=== PATIENT | male | born 1950 | race Caucasian/White ===

== ENCOUNTER → 2017-12-09 | Outpatient (CLI) | payer MEDICARE, OTHER, BC | LOC: M SLEEP 18:40 | DX: G47.33 Obstructive sleep apnea (adult) (pediatric) (principal) | CPT/HCPCS: 95811 ==

== ENCOUNTER → 2019-12-07 | Outpatient (CLI) | payer MEDICARE, BC, OTHER ==
[~2019-12-07] MED LIST: ACET500C OR; COUM1TAB17 OR; LYRI75CA OR; RYZOLT OR; SOMA250T OR; TUSSSUS5 OR; VICO5TAB OR; ZITHTAB OR
[2019-12-07 17:58] LABS: BLOOD UREA NITROGEN 12 MG/DL (7-18); CREATININE FOR GFR 0.76 MG/DL (0.70-1.30); GLOMERULAR FILTRATION RATE > 60.0 (>49)
== END ==
LOC: M WUC 12:09
PROVIDERS: ATTEND Nurse Practitioner Adult Health
DX: R91.8 Other nonspecific abnormal finding of lung field (principal)

== ENCOUNTER → 2019-12-07 | Outpatient (CLI) | payer MEDICARE, BC, OTHER ==
--- NOTE | 2019-12-07 17:17 | REP ---
REASON FOR EXAM: Dyspnea. The latest prior for comparison is 10/24/2007. Cardiomediastinal silhouette and lung altman are unchanged. No acute patchy parenchymal opacities or pleural effusions have developed. The heart is not enlarged. The osseous structures stable and intact. IMPRESSION: Stable chest. Electronically Signed by Juanpablo Avila DO 12/07/2019 07:11 P
== END ==
LOC: M RAD 09:50
PROVIDERS: ATTEND Nurse Practitioner Adult Health
DX: R06.02 Shortness of breath (principal); R91.8 Other nonspecific abnormal finding of lung field

== ENCOUNTER → 2020-01-08 | Outpatient (CLI) | payer MEDICARE, BC, OTHER ==
[~2020-01-08] MED LIST changes: +ALBU8.5H INH; +B COCAP4 PO; +CARI250T PO; +D31000TA2 PO; +FLOM0.4C39 PO; +FLUT11IN INH; +ISOVUE-370 76% 100ML VIAL As Ordered ONE; +MULTCAP PO; +PREG75CA2 PO; +ROSU40TA4 PO; +TRAM100T21 PO; +WARF-23 PO
--- NOTE | 2020-01-08 11:42 | REP ---
REASON: History of dyspnea. No prior chest CTs for comparison. The latest prior plain film examination chest 12/07/2019 reviewed. CONTRAST: 100 mL Isovue 370. There is no mediastinal or hilar adenopathy. There are no pleural or pericardial effusions. The imaged upper abdomen shows cholelithiasis. The imaged osseous structures are within normal limits. Evaluation of the lung altman shows no abnormal nodules, masses, or opacities. IMPRESSION: CT findings of the chest are within normal limits. There is cholelithiasis. Electronically Signed by Juanpablo Avila DO 01/08/2020 03:55 P
== END ==
LOC: M RAD 08:59
PROVIDERS: ATTEND Nurse Practitioner Adult Health
DX: R91.8 Other nonspecific abnormal finding of lung field (principal); Z87.891 Personal history of nicotine dependence
CPT/HCPCS: 71260; Q9967

== ENCOUNTER → 2020-01-21 | Outpatient (CLI) | payer MEDICARE, BC, OTHER ==
[~2020-01-21] MED LIST changes: -ALBU8.5H INH; -B COCAP4 PO; -CARI250T PO; -D31000TA2 PO; -FLOM0.4C39 PO; -FLUT11IN INH; -ISOVUE-370 76% 100ML VIAL As Ordered ONE; +METHACHOLINE KIT (J7674) INH ONE; -MULTCAP PO; -PREG75CA2 PO; -ROSU40TA4 PO; -TRAM100T21 PO; -WARF-23 PO
--- NOTE | 2020-01-21 10:25 | PFTRPT ---
Site: [facility], [address] [place], [address] ID: [id number] Name: CAIL ESCOTO Visit Date: 01/21/2020 Second ID: [id number] Referring Doctor: Giles Bhat DO Reviewing Doctor: Bacilio Cannon MD Commercial Artist: Slim VILLARREAL RRT Age: 69 : 1950 Sex: Male Race: Height: 71.00 Inches Weight: 255.00 Lbs BSA: 2.34 Order IDs: [id number] Requested Test(s): <RESP-PFT.METH CHAL> Diagnosis: R06.02 puffs of albuterol for post bronchodilator. Review Status: Not Reviewed Pre-Bronch Post-Bronch Pred Actual %Pred Actual %Chng SPIROMETRY FVC (L) 4.70 3.97 84 3.89 -1 FEV1 (L) 3.49 3.12 89 3.06 -2 FEV1/FVC (%) 74 79 106 79 FEF 25% (L/sec) 8.04 8.52 105 7.71 -9 FEF 50% (L/sec) 4.80 4.14 86 3.89 -6 FEF 75% (L/sec) 1.43 0.90 62 0.84 -6 FEF 25-75% (L/sec) 2.71 2.81 103 2.58 -8 FEF Max (L/sec) 8.86 8.52 96 7.72 -9 FIVC (L) 3.71 3.35 -9 FIF 50% (L/sec) 4.53 2.22 48 2.68 21 FIF Max (L/sec) 3.38 3.27 -3 Expiratory Time (sec) 7.13 6.64 -6 Back Extrap Vol (L) 0.15 0.13 -15 Time To FEFmax (sec) 0.121 0.121
== END ==
LOC: M CARPUL 09:27
PROVIDERS: ATTEND Internal Medicine Pulmonary Disease
DX: R06.02 Shortness of breath (principal)
CPT/HCPCS: 94070; 95070; J7674

== ENCOUNTER → 2020-04-08 | Outpatient (CLI) | payer MEDICARE, BC, OTHER ==
[~2020-04-08] MED LIST changes: +ALBU8.5H INH; +B COCAP4 PO; +CARI250T PO; +D31000TA2 PO; +FLOM0.4C39 PO; +FLUT11IN INH; -METHACHOLINE KIT (J7674) INH ONE; +MULTCAP PO; +PREG75CA2 PO; +ROSU40TA4 PO; +TRAM100T21 PO; +WARF-23 PO
== END ==
LOC: M LABSMTC 12:32
PROVIDERS: ATTEND Anesthesiology
DX: Z01.812 Encounter for preprocedural laboratory examination (principal); Z20.828 Contact with and (suspected) exposure to other viral communicable diseases
CPT/HCPCS: C9803; U0003

== ENCOUNTER 2020-04-13 12:08 | Day surgery (SDC) | payer OTHER ==
[~2020-04-13] VITALS: Ht 180.3 cm; Wt 117.0 kg
[~2020-04-13 12:08] MED LIST changes: +NS 1,000 ML IV ONE
[2020-04-13] MEDS ORDERED: propofoL 200 MG/20 ML VIAL As Ordered ONE ×2 (13:29→13:58)
[2020-04-13] MEDS ORDERED: LIDOCAINE 2% 100MG/5ML SDV (FOR ANES.) As Ordered ONE (13:29)
--- NOTE | 2020-04-13 14:09 | ROOR ---
Patient Name: Femi Silveira Procedure Date: 04/13/2020 1:31 PM Date of : 1950 Age: 69 Room: [facility] Gender: Male Note Status: Finalized Procedure: Total Colonoscopy to Cecum + Cold Snare Polypectomy + Hemoclips Indications: High risk colon cancer surveillance: Personal history of colonic polyps, Last colonoscopy: 2018 Providers: Vance Olmos MD Referring MD: Ruiz Collins MD Requesting Provider: Medicines: Monitored Anesthesia Care Complications: No immediate complications. Procedure: Pre-Anesthesia Assessment: - The heart rate, respiratory rate, oxygen saturations, blood pressure, adequacy of pulmonary ventilation, and response to care were monitored throughout the procedure. The Colonoscope was introduced through the anus and advanced to the cecum, identified by appendiceal orifice and ileocecal valve. The colonoscopy was performed without difficulty. The patient tolerated the procedure well. The quality of the bowel preparation was excellent. Findings: The perianal and digital rectal examinations were normal. Non-bleeding internal hemorrhoids were found during retroflexion. The hemorrhoids were small and Grade I (internal hemorrhoids that do not prolapse). Scattered small-mouthed diverticula were found in the recto-sigmoid colon, sigmoid colon and descending colon. Multiple sessile polyps were found in the entire colon. The polyps were medium in size. These polyps were removed with a cold snare. Resection and retrieval were complete. To prevent bleeding after the polypectomy, six hemostatic clips were successfully placed (MR conditional). There was no bleeding at the end of the procedure. The exam was otherwise without abnormality on direct and retroflexion views. Impression: - Non-bleeding internal hemorrhoids. - Diverticulosis in the recto-sigmoid colon, in the sigmoid colon and in the descending colon. - Multiple medium polyps in the entire colon, removed with a cold snare. Resected and retrieved. Clips (MR conditional) were placed. - The examination was otherwise normal on direct and retroflexion views. - The exam was otherwise normal to the cecum. Recommendation: - Patient has a contact number available for emergencies. The signs and symptoms of potential delayed complications were discussed with the patient. Return to normal activities tomorrow. Written discharge instructions were provided to the patient. - High fiber diet. - Discharge patient to home. - Continue present medications. - Await pathology results. - Telephone GI clinic for pathology results in 1 week. - Repeat colonoscopy for surveillance based on pathology results. - Resume Coumadin (warfarin) at prior dose today. - Await pathology results. - The findings and recommendations were discussed with the patient. Vance Olmos MD Vance Olmos MD 04/13/2020 2:08:32 PM Electronically signed by Vance Olmos MD Number of Addenda: 0 Note Initiated On: 04/13/2020 1:31 PM Estimated Blood Loss: Estimated blood loss: none.
[2020-04-13 14:43] VITALS: BP 142/81
== END 2020-04-13 14:46 | disposition home or self-care (01) ==
LOC: M OPP 12:08
PROVIDERS: ATTEND Internal Medicine Gastroenterology
DX: Z12.11 Encounter for screening for malignant neoplasm of colon (principal); Z86.010 Personal history of colon polyps; D12.3 Benign neoplasm of transverse colon; K57.30 Diverticulosis of large intestine without perforation or abscess without bleeding; K64.0 First degree hemorrhoids; Z79.01 Long term (current) use of anticoagulants; Z79.891 Long term (current) use of opiate analgesic; Z79.899 Other long term (current) drug therapy; Z87.891 Personal history of nicotine dependence

== ENCOUNTER → 2021-11-14 | Outpatient (CLI) | payer MEDICARE, BC, OTHER ==
[~2021-11-14] MED LIST changes: -D31000TA2 PO; -NS 1,000 ML IV ONE; +VITA100093 PO
== END ==
LOC: M CARPUL 10:53
PROVIDERS: ATTEND Internal Medicine Pulmonary Disease
DX: R06.02 Shortness of breath (principal)

== ENCOUNTER → 2021-11-21 | Outpatient (CLI) | payer MEDICARE, BC, OTHER | LOC: M RAD 11:42 | PROVIDERS: ATTEND Nurse Practitioner Adult Health | DX: J98.6 Disorders of diaphragm (principal) ==

== ENCOUNTER 2024-04-01 10:41 | Day surgery (SDC) | payer MEDICARE, OTHER ==
[~2024-04-01] VITALS: Ht 182.9 cm; Wt 105.7 kg
[~2024-04-01 10:41] MED LIST changes: +DEPA1TAB3 PO; +DILT120C89 PO; -FLUT11IN INH; +FLUT12AE6 INH; +GABA-1171 PO; +GABA-1172 PO; +METF-838 PO; +PREG100C2 PO; +PREG100CA PO; -PREG75CA2 PO; +PREG75CA3 PO; +ROPI1TAB73 PO; -ROSU40TA4 PO; +ROSU40TA81 PO; +SILD100T PO; +THERTAB52 PO; +TRAM50TA2 PO
[2024-04-01] MEDS: NS 1,000 ML IV ONE (11:44)
[2024-04-01] MEDS ORDERED: LIDOCAINE 2% 100MG/5ML SDV (FOR ANES.) As Ordered ONE (13:46)
[2024-04-01] MEDS ORDERED: propofoL 200 MG/20 ML VIAL As Ordered ONE (13:46)
[2024-04-01 14:01] VITALS: TEMP 97.5
[2024-04-01 14:22] VITALS: BP 148/82; O2SAT 96
== END 2024-04-01 14:22 | disposition home or self-care (01) ==
LOC: M OPP 10:41
PROVIDERS: ATTEND Internal Medicine Gastroenterology
DX: K63.5 Polyp of colon (principal); Z86.0100 Personal history of colon polyps, unspecified; K64.0 First degree hemorrhoids; K57.30 Diverticulosis of large intestine without perforation or abscess without bleeding; R73.03 Prediabetes; M19.90 Unspecified osteoarthritis, unspecified site; G47.30 Sleep apnea, unspecified; J45.909 Unspecified asthma, uncomplicated; E78.00 Pure hypercholesterolemia, unspecified; Z86.711 Personal history of pulmonary embolism; Z86.718 Personal history of other venous thrombosis and embolism; Z87.891 Personal history of nicotine dependence; Z79.01 Long term (current) use of anticoagulants; Z79.84 Long term (current) use of oral hypoglycemic drugs; Z79.899 Other long term (current) drug therapy

== ENCOUNTER → 2025-04-12 | Outpatient (REF) | payer BC, MEDICARE, OTHER ==
[~2025-04-12] MED LIST changes: -FLOM0.4C39 PO; +PREG-35 PO; -PREG100CA PO; +TAMS-18 PO
[2025-04-12 13:32] LABS: APPEARANCE, URINE CLOUDY (CLEAR); BACTERIA, URINE AUTO NEGATIVE (NEGATIVE); BILIRUBIN, URINE AUTO NEGATIVE (NEGATIVE); BLOOD, URINE BLOOD 3+ (NEGATIVE); CALCIUM OXALATE CRYSTALS SMALL; GLUCOSE, URINE (UA) AUTO 1+ mg/dL (NEGATIVE); KETONE, URINE AUTO NEGATIVE (NEGATIVE); LEUKOCYTE ESTERASE, URINE AUTO NEGATIVE (NEGATIVE); MUCUS, URINE SMALL (NEGATIVE); NITRITE, URINE AUTO NEGATIVE (NEGATIVE); PROTEIN, URINE AUTO 2+ mg/dL (NEGATIVE); RBC, URINE AUTO TNTC /HPF (0-3); SPECIFIC GRAVITY URINE AUTO 1.023 (1.002-1.035); SQUAMOUS EPITHELIAL CELL UR AU 0 /HPF (0-6); UROBILINOGEN, URINE AUTO 2.0 mg/dL (0.0-2.0); WBC, URINE AUTO 2 /HPF (0-3); YEAST LIKE CELL URINE AUTO SMALL
== END ==
LOC: M SMT 12:30
PROVIDERS: ATTEND Physician Assistant
DX: N40.1 Benign prostatic hyperplasia with lower urinary tract symptoms (principal); N20.0 Calculus of kidney; R39.12 Poor urinary stream; Z87.898 Personal history of other specified conditions; Z79.01 Long term (current) use of anticoagulants; Z79.899 Other long term (current) drug therapy; Z79.51 Long term (current) use of inhaled steroids; Z87.891 Personal history of nicotine dependence
CPT/HCPCS: 81001; 88108; G0463